=== PATIENT | female | born 1995 | race Two or more races ===

== ENCOUNTER 2020-06-09 11:17 | Emergency (ER) | payer BC ==
[~2020-06-09] VITALS: Ht 162.6 cm; Wt 75.0 kg
--- NOTE | 2020-06-09 11:30 | NUR ---
WAREHOUSE SHIPPING SUPERVISOR NOTE: PT TAKEN STRAIGHT TO ROOM 33 FROM LOBBY VIA [facility]. PT PLACED ON ALL MONITORS BY DEMETRIUSTJEAN AT BEDSIDE.
[2020-06-09 12:13] VITALS: BP 117/53
--- NOTE | 2020-06-09 12:15 | NUR ---
Pt straight back from triage for SOB. Pt in no acute distress, states drinking too much last night, denies N/V. Has some mild anxiety, otherwise appears comfortable.
[2020-06-09] MEDS ORDERED: SODIUM CHLORIDE 0.9% 1,000ML IVBOLUS ONE (12:30)
[2020-06-09 12:36] LABS: BASOPHILS # (AUTO) 0.07 x10^3/uL (0-0.1); BASOPHILS % (AUTO) 1 % (0-1); EOSINOPHILS # (AUTO) 0.01 x10^3/uL (0-0.4); EOSINOPHILS % (AUTO) 0 % (1-7); LYMPHOCYTES # (AUTO) 0.84 x10^3/uL (1-3.4); LYMPHOCYTES % (AUTO) 11 % (22-44); MD NO; MEAN CORPUSCULAR HEMOGLOBIN 29.9 pg (27.0-34.8); MEAN CORPUSCULAR HGB CONC 33.6 g/dL (32.4-35.8); MEAN CORPUSCULAR VOLUME 89.1 fL (80-100); MEAN PLATELET VOLUME 8.5 fL (7.4-10.4); MONOCYTES # (AUTO) 0.22 x10^3/uL (0.2-0.8); MONOCYTES % (AUTO) 3 % (2-9); NEUTROPHILS # (AUTO) 6.23 x10^3/uL (1.8-6.8); NEUTROPHILS % (AUTO) 85 % (42-75); PLATELET COUNT 301 x10^3/uL (130-400); RED BLOOD COUNT 4.74 x10^6/uL (3.82-5.3); RED CELL DISTRIBUTION WIDTH 13.5 % (9.6-15.2)
[2020-06-09 12:48] LABS: ALBUMIN 4.2 g/dL (3.4-5.0); ANION GAP 8 mmol/L (5-15); CALCIUM 8.8 mg/dL (8.5-10.1); CHLORIDE 107 mmol/L (98-107)
[2020-06-09 12:55] LABS: ALANINE AMINOTRANSFERASE 29 U/L (12-78); ALKALINE PHOSPHATASE 78 U/L (45-117); BILIRUBIN,TOTAL 0.5 mg/dL (0.2-1.0); CREATININE 0.76 mg/dL (0.55-1.02); TOTAL PROTEIN 7.5 g/dL (6.4-8.2)
[2020-06-09 13:24] LABS: MICROSCOPIC AUTO
--- NOTE | 2020-06-09 13:50 | NUR ---
IV 20G RAC DISCONTINUED WITH CATH TIP IN PLACE. DISCHARGE PAPERS GIVEN. PT AMBULATED TO DISCHARGE WINDOW, STEADY GAIT
== END 2020-06-09 13:52 | disposition home or self-care (01) ==
LOC: ED 13:47
DX: K29.00 Acute gastritis without bleeding (principal); N30.00 Acute cystitis without hematuria
CPT/HCPCS: 36415; 71045; 80053; 81001; 83690; 84703; 85025; 87086; 93005; 96360; 99285; J7030

== ENCOUNTER 2020-10-24 01:48 | Emergency (ER) | payer BC ==
[~2020-10-24] VITALS: Ht 162.6 cm; Wt 75.8 kg
--- NOTE | 2020-10-24 02:20 | NUR ---
pt ambulated to room 4. calm and cooperative. pts mom at bedside. pt on o2 sat probe monitor.
[2020-10-24] MEDS ORDERED: LORazepam 1MG TABLET ONE ×2 (02:21→03:30)
[2020-10-24] MEDS ORDERED: LORazepam 1MG TABLET PO ONE ×2 (02:30→03:30)
--- NOTE | 2020-10-24 02:33 | NUR ---
MD order received for po meds. meds given and pt tolerated well, no distress and no complaints at this time.
[2020-10-24 03:04] VITALS: BP 132/78
[2020-10-24] MEDS ORDERED: ONDANSETRON ODT 4 MG ONE (03:30)
[2020-10-24] MEDS ORDERED: ONDANSETRON ODT 4 MG PO ONE (03:30)
--- NOTE | 2020-10-24 03:39 | NUR ---
per MD order, dose of ativan given po, and zofran added PO, prior to d/c instructions. pt verbalized relief of pain and anxiety prior to d/c. f/u and d/c instructions given to pt and she v/u. ambulatory and in no acute distress. pt d/c'd without incident.
== END 2020-10-24 03:41 ==
LOC: ED 02:32
DX: F41.1 Generalized anxiety disorder (principal); G47.00 Insomnia, unspecified; F41.0 Panic disorder [episodic paroxysmal anxiety]
CPT/HCPCS: 99284; Q0162